=== PATIENT | male | born 1940 | race Caucasian/White ===

== ENCOUNTER → 2016-08-20 | Outpatient (CLI) | payer MEDICARE, OTHER ==
[2016-08-20 08:29] LABS: ALANINE AMINOTRANSFERASE 32 U/L (21-72); ALBUMIN 3.9 g/dL (3.5-5.0); ALKALINE PHOSPHATASE 38 U/L (38-126); ANION GAP 11 (5-19); ASPARTATE AMINO TRANSFERASE 23 U/L (17-59); BILIRUBIN,TOTAL 0.7 mg/dL (0.2-1.3); BLOOD UREA NITROGEN 25 mg/dL (7-20); CALCIUM 9.7 mg/dL (8.4-10.2); CARBON DIOXIDE 26 mmol/L (22-30); CHLORIDE 106 mmol/L (98-107); CHOLESTEROL 133.87 mg/dL (0-200); CREATININE RESULT 1.23 mg/dL (0.52-1.25); Direct HDL 32 mg/dL (>40); GLUCOSE 96 mg/dL (75-110); POTASSIUM 4.2 mmol/L (3.6-5.0); SODIUM 143.2 mmol/L (137-145); TRIGLYCERIDES 183 mg/dL (<150)
[2016-08-20 08:40] LABS: DIRECT LDL 65 mg/dL (<100)
[2016-08-20 08:55] LABS: VLDL CHOLESTEROL 36.6 mg/dL (10-31)
== END ==
LOC: OD 07:04
PROVIDERS: ATTEND Internal Medicine
DX: Z01.810 Encounter for preprocedural cardiovascular examination (principal); I25.10 Atherosclerotic heart disease of native coronary artery without angina pectoris; Z95.1 Presence of aortocoronary bypass graft; I71.4 Abdominal aortic aneurysm, without rupture; I25.2 Old myocardial infarction; E78.4 Other hyperlipidemia; I10 Essential (primary) hypertension; Z79.899 Other long term (current) drug therapy
CPT/HCPCS: 36415; 80053; 80061

== ENCOUNTER → 2016-09-08 | Outpatient (CLI) | payer MEDICARE, OTHER | LOC: RAD 13:46 | PROVIDERS: ATTEND Specialist | DX: I71.4 Abdominal aortic aneurysm, without rupture (principal) | CPT/HCPCS: 74175 ==

== ENCOUNTER 2016-12-13 15:01 | Emergency (ER) | payer MEDICARE, OTHER ==
--- NOTE | 2016-12-13 17:10 | ER Document Report ---
ED Medical Screen (RME) - General Chief Complaint: Back Pain Stated Complaint: KNEE AND BACK PAIN Time Seen by Provider: 12/13/16 16:56 Mode of Arrival: Ambulatory Information source: Patient Notes: 76-year-old male presents to ED for chronic pain in his lower back pain goes through to his abdomen that he states is chronic with no new injury. He states it does not hurt to touch his back or his abdomen but when he tries to get up and down the pain is severe. 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 He states he is also having pain to his left knee that is also chronic. 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 I have greeted and performed a rapid initial assessment of this patient. A comprehensive ED assessment and evaluation of the patient, analysis of test results and completion of medical decision making process will be conducted by an additional ED providers. TRAVEL OUTSIDE OF THE [place] IN LAST 30 DAYS: No - Related Data Allergies/Adverse Reactions: tetracycline [Tetracycline] Adverse Reaction (Intermediate, Verified 12/13/16 15 :19) sick, hallucinations Past Medical History - Past Medical History Cardiac Medical History: Reports: Hx Congestive Heart Failure, Hx Coronary Artery Disease, Hx Heart Attack - [place] 1985, Hx Hypercholesterolemia, Hx Hypertension - DX [place] 1985. on meds Pulmonary Medical History: Reports: Hx Bronchitis - HAD 20 YEARS AGO Denies: Hx Asthma, Hx COPD, Hx Pneumonia Neurological Medical History: Denies: Hx Cerebrovascular Accident, Hx Seizures Renal/ Medical History: Reports: Hx Kidney Stones. Denies: Hx Peritoneal Dialysis GI Medical History: Reports: Hx Gastroesophageal Reflux Disease - DX [place] 2008, Hx Hiatal Hernia - [place] 2008. Denies: Hx Hepatitis, Hx Ulcer Musculoskeltal Medical History: Reports Hx Arthritis - DJD Infectious Medical History: Denies: Hx Hepatitis Past Surgical History: Reports: Hx Cardiac Catheterization - [place] 1985, Hx Cardiac Surgery, Hx Open Heart Surgery, Hx Oral Surgery - TEETH. Denies: Hx Adenoidectomy, Hx Pacemaker - Immunizations Hx Diphtheria, Pertussis, Tetanus Vaccination: Yes Physical Exam - Vital signs Vitals: Temp Pulse Resp BP Pulse Ox 97.5 F 86 20 124/71 93 12/13/16 15:17 12/13/16 15:17 12/13/16 15:17 12/13/16 15:17 12/13/16 15:17 Course - Vital Signs Vital signs: Temp Pulse Resp BP Pulse Ox 97.5 F 86 20 124/71 93 12/13/16 15:17 12/13/16 15:17 12/13/16 15:17 12/13/16 15:17 12/13/16 15:17
[2016-12-13 18:07] LABS: ABSOLUTE BASOPHILS # (AUTO) 0.1 10^3/uL (0.0-0.2); ABSOLUTE EOSINOPHILS # (AUTO) 0.2 10^3/uL (0.0-0.6); ABSOLUTE MONOCYTES (AUTO) 1.3 10^3/uL (0.1-1.4); ABSOLUTE NEUT (AUTO) 8.7 10^3/uL (1.7-8.2); BASOPHILS % (AUTO) 0.5 % (0-2); EOSINOPHILS % (AUTO) 1.5 % (0-6); HEMATOCRIT 39.4 % (37.9-51.0); HEMOGLOBIN 12.8 g/dL (13.5-17.0); LYMPHOCYTES % (AUTO) 16.2 % (13-45); MEAN CORPUSCULAR HEMOGLOBIN 29.9 pg (27.0-33.4); MEAN CORPUSCULAR HGB CONC 32.5 g/dL (32.0-36.0); MEAN CORPUSCULAR VOLUME 92 fl (80-97); MONOCYTES % (AUTO) 10.7 % (3-13); RED BLOOD COUNT 4.29 10^6/uL (4.35-5.55); RED CELL DISTRIBUTION WIDTH 13.4 % (11.5-14.0); SEGMENTED NEUTROPHILS % (AUTO) 71.1 % (42-78); WHITE BLOOD COUNT 12.3 10^3/uL (4.0-10.5)
[2016-12-13 18:18] LABS: APPEARANCE,URINE SLIGHTLY-CLOUDY; BILIRUBIN,URINE NEGATIVE (NEGATIVE); GLUCOSE, URINE NEGATIVE (NEGATIVE); KETONES,URINE NEGATIVE (NEGATIVE); LEUKOCYTE ESTERASE,URINE NEGATIVE (NEGATIVE); NITRITE,URINE NEGATIVE (NEGATIVE); PROTEIN,URINE NEGATIVE (NEGATIVE); URINE SPECIFIC GRAVITY 1.025; UROBILINOGEN,URINE NEGATIVE mg/dL (<2.0)
[2016-12-13 18:24] LABS: ALANINE AMINOTRANSFERASE 32 U/L (21-72); ALBUMIN 4.4 g/dL (3.5-5.0); ALKALINE PHOSPHATASE 50 U/L (38-126); ANION GAP 14 (5-19); ASPARTATE AMINO TRANSFERASE 27 U/L (17-59); BILIRUBIN,DIRECT 0.5 mg/dL (0.0-0.4); BILIRUBIN,TOTAL 0.8 mg/dL (0.2-1.3); BLOOD UREA NITROGEN 27 mg/dL (7-20); CARBON DIOXIDE 27 mmol/L (22-30); CHLORIDE 101 mmol/L (98-107); CREATININE RESULT 1.34 mg/dL (0.52-1.25); GLUCOSE 94 mg/dL (75-110); POTASSIUM 4.5 mmol/L (3.6-5.0); TOTAL PROTEIN 8.2 g/dL (6.3-8.2)
[2016-12-13] MEDS ORDERED: LIDOCAINE 5% (700 MG) TRANSDERMAL ADH..PATCH TP ONE (19:25)
[2016-12-13] MEDS ORDERED: MORPHINE SULFATE IR 15 MG TABLET PO ONE (19:25)
[2016-12-13] MEDS ORDERED: NAPROXEN 250 MG TABLET PO ONE (19:25)
--- NOTE | 2016-12-13 19:25 | ER Document Report ---
ED General - General Chief Complaint: Back Pain Stated Complaint: KNEE AND BACK PAIN Time Seen by Provider: 12/13/16 16:56 Mode of Arrival: Ambulatory Notes: Patient is a 76-year-old male who presents with acute worsening of his chronic low back pain. States that today when he got out of bed he felt an acute stabbing pain to his left. Lumbar spine. Patient states that he daily has pain to this area but that was much more intense today. Pain is worsened by range of motion or trying to walk. He has tried Tylenol without improvement of the pain. Denies any weakness, numbness, difficulty with ambulation, bowel or bladder incontinence, or urinary retention. Denies any history of similar pain in the past. He denies any abdominal pain, pain rating from the back to the abdomen, nausea, vomiting, fever, or chest pain. He is scheduled to see his orthopedic doctor in 3 days and states the pain was to a point where he felt he needed to be evaluated today. Denies any recent injury although does note that he picked his up off the floor 2 days ago. TRAVEL OUTSIDE OF THE [place] IN LAST 30 DAYS: No - Related Data Allergies/Adverse Reactions: tetracycline [Tetracycline] Adverse Reaction (Intermediate, Verified 12/13/16 15 :19) sick, hallucinations Past Medical History - General Information source: Patient - Social History Smoking Status: Never Smoker Frequency of alcohol use: None Drug Abuse: None Lives with: Spouse/Significant other Family History: Reviewed & Not Pertinent Patient has suicidal ideation: No Patient has homicidal ideation: No - Past Medical History Cardiac Medical History: Reports: Hx Congestive Heart Failure, Hx Coronary Artery Disease, Hx Heart Attack - [place] 1985, Hx Hypercholesterolemia, Hx Hypertension - DX [place] 1985. on meds Pulmonary Medical History: Reports: Hx Bronchitis - HAD 20 YEARS AGO Denies: Hx Asthma, Hx COPD, Hx Pneumonia Neurological Medical History: Denies: Hx Cerebrovascular Accident, Hx Seizures Renal/ Medical History: Reports: Hx Kidney Stones. Denies: Hx Peritoneal Dialysis GI Medical History: Reports: Hx Gastroesophageal Reflux Disease - DX [place] 2008, Hx Hiatal Hernia - [place] 2008. Denies: Hx Hepatitis, Hx Ulcer Musculoskeltal Medical History: Reports Hx Arthritis - DJD Infectious Medical History: Denies: Hx Hepatitis Past Surgical History: Reports: Hx Cardiac Catheterization - [place] 1985, Hx Cardiac Surgery, Hx Open Heart Surgery, Hx Oral Surgery - TEETH. Denies: Hx Adenoidectomy, Hx Pacemaker - Immunizations Hx Diphtheria, Pertussis, Tetanus Vaccination: Yes Hx Pneumococcal Vaccination: 03/20/07 Review of Systems - Review of Systems Notes: Constitutional: Negative for fever. HENT: Negative for sore throat. Eyes: Negative for visual changes. Cardiovascular: Negative for chest pain. Respiratory: Negative for shortness of breath. Gastrointestinal: Negative for abdominal pain, vomiting or diarrhea. Genitourinary: Negative for dysuria. Musculoskeletal: Positive for back pain. Skin: Negative for rash. Neurological: Negative for headaches, weakness or numbness. 10 point ROS negative except as marked above and in HPI. Physical Exam - Vital signs Vitals: Temp Pulse Resp BP Pulse Ox 97.5 F 86 20 124/71 93 12/13/16 15:17 12/13/16 15:17 12/13/16 15:17 12/13/16 15:17 12/13/16 15:17 Interpretation: Normal Notes: PHYSICAL EXAMINATION: GENERAL: Well-appearing, well-nourished and in no acute distress. HEAD: Atraumatic, normocephalic. EYES: Pupils equal round and reactive to light, extraocular movements intact, sclera anicteric, conjunctiva are normal. ENT: nares patent, oropharynx clear without exudates. Moist mucous membranes. NECK: Normal range of motion, supple without lymphadenopathy LUNGS: Breath sounds clear to auscultation bilaterally and equal. No wheezes rales or rhonchi. HEART: Regular rate and rhythm without murmurs ABDOMEN: Soft, nontender, normoactive bowel sounds. No guarding, no rebound. No masses appreciated. EXTREMITIES: Normal range of motion, no pitting or edema. No cyanosis. Back: No midline spinal tenderness, step-offs or deformities. There is pain on palpation of the carmelo-lumbar spine on the left NEUROLOGICAL: 5 out of 5 strength both distally and proximally bilateral lower extremities. 2+ patellar reflexes bilaterally. No clonus. Sensation grossly intact in the bilateral lower extremities. Patient is able to ambulate without difficulty. PSYCH: Normal mood, normal affect. SKIN: Warm, Dry, normal turgor, no rashes or lesions noted. Course - Re-evaluation Re-evalutation: 12/13/16 19:22 Presentation of a well appearing patient complaining of acute on chronic back pain. No rapid progression of symptoms, systemic symptoms including fevers, chills, weight loss, history of recent bacterial infection, bilateral symptoms, numbness, weakness, difficulty walking, urinary retention or bowel incontinence , personal history of cancer, immunosuppression, diabetes, or history of IV drug use. Exam is without point tenderness over vertebral bodies, pulsatile abdominal mass, and patient has symmetric and intact lower extremity strength, sensation, and reflexes without clonus. 2+ symmetric medial malleolar and dorsalis pedis pulses. Patient does have a history of an abdominal aneurysm although he denies any abdominal pain whatsoever, his pain is reproducible on palpation of the low back, and his clinical history is not consistent with a ruptured AAA. States his pain is actually improved at the time of my assessment. Pain is worsened by range of motion and going from a sitting to standing position with the highly atypical for an aortic presentation. I do not believe patient requires a CT scan of the abdomen pelvis at this time. Based on history and physical, I have a very low suspicion of a concerning etiology of pain including epidural compression syndrome, spinal infection, transverse myelitis, malignancy, abdominal aortic aneurysm, renal colic, acute lower extremity claudication, neurogenic claudication, ankylosing spondylitis, or other intra-abdominal process. Due to absence of concerning risk factors in history and physical as well as absence of rapidly progressive, severe, or bilateral symptoms, will defer imaging at this point. Plan to manage conservatively with outpatient analgesia, analgesia, and physical therapy. - Acetaminophen 650 q 4 + ibuprofen 600 q 6 - Continue normal daily activities as tolerated by pain - Provide with standard musculoskeletal back pain exercise instructions - Instruct to follow up with primary care provider if symptoms not improving - Provide careful return precautions and concerning symptoms to watch for. - Vital Signs Vital signs: Temp Pulse Resp BP Pulse Ox 97.8 F 82 18 113/89 H 97 12/13/16 20:13 12/13/16 20:13 12/13/16 20:13 12/13/16 20:13 12/13/16 20:13 - Laboratory Result Diagrams: 12/13/16 17:50 12/13/16 17:50 Laboratory results interpreted by me: 12/13/16 12/13/16 12/13/16 17:50 17:50 17:50 WBC 12.3 H RBC 4.29 L Hgb 12.8 L Absolute Neutrophils 8.7 H BUN 27 H Creatinine 1.34 H Est GFR (Non-Af Amer) 52 L Direct Bilirubin 0.5 H Urine Ascorbic Acid 40 H Discharge - Discharge Clinical Impression: Low back pain Qualifiers: Chronicity: acute Back pain laterality: left Sciatica presence: without sciatica Qualified Code(s): M54.5 - Low back pain Condition: Good Disposition: HOME, SELF-CARE Additional Instructions: You have been seen in the Emergency Department (ED) today for back pain. Your workup and exam have not shown any acute abnormalities and you are likely suffering from muscle strain or possible problems with your discs, but there is no treatment that will fix your symptoms at this time. Please take the naproxen that has been prescribed as directed. In addition to naproxen take Tylenol 1000 mg every 6 hours. For pain not controlled by the naproxen and Tylenol you may use the oral morphine tablets as needed. You should also purchase a local lidocaine cream such as "aspercreme with lidocaine" and use per bottle instructions to the affected area. Apply heat to the area as often as you are able. Continue to keep active and avoid prolonged periods of bed rest. Please follow up with your doctor as soon as possible regarding today's ED visit and your back pain. Return to the ED for worsening back pain, fever, weakness or numbness of either leg, or if you develop either (1) an inability to urinate or have bowel movements, or (2) loss of your ability to control your bathroom functions (if you start having "accidents"), or if you develop other new symptoms that concern you.concern you. Prescriptions: Morphine Sulfate [Morphine Ir 15 mg Tablet] 15 mg PO Q4HP PRN #12 tablet PRN Reason: Naproxen 500 mg PO BID #60 tablet Referrals: HILARIA DE GUZMAN MD [Primary Care Provider] - Follow up in 3-5 days
[2016-12-13 20:24] VITALS: BP 113/89
== END 2016-12-13 20:24 | disposition home or self-care (01) ==
LOC: ER 15:01
DX: M54.5 Low back pain (principal); G89.29 Other chronic pain; I25.10 Atherosclerotic heart disease of native coronary artery without angina pectoris; I25.2 Old myocardial infarction; I10 Essential (primary) hypertension
CPT/HCPCS: 99283; 36415; 85025; 80053; 81001; A9270 ×2

== ENCOUNTER 2017-02-13 11:56 | Emergency (ER) | payer MEDICARE, OTHER ==
[2017-02-13 12:04] VITALS: BP 139/68
[2017-02-13] MEDS ORDERED: TRAMADOL HCL 50 MG TABLET PO ONE (12:21)
[2017-02-13] MEDS ORDERED: KETOROLAC TROMETHAMINE 60 MG/2 ML SDV IM ONE (12:21)
--- NOTE | 2017-02-13 12:29 | ER Document Report ---
ED Extremity Problem, Lower - General Chief Complaint: Knee Pain Stated Complaint: RIGHT KNEE PAIN Time Seen by Provider: 02/13/17 12:09 Mode of Arrival: Ambulatory Information source: Patient TRAVEL OUTSIDE OF THE [place] IN LAST 30 DAYS: No - HPI Patient complains to provider of: Pain Location: Knee Occurred: This morning Onset/Duration: Gradual Quality of pain: Dull, Fullness Severity: Moderate Pain Level: 2 Recent injury: No Associated symptoms: denies: Chest pain, Chills, Dizzy, Fainting, Fever, [place] a crack, [place] a pop, Hurts to breath, Painful ambulation, Rapid heart rate, Seizure, Short of breath, Sweaty, Unable to bear weight, Weak Exacerbated by: Movement Relieved by: Nothing Notes: Patient arrives with complaints of right knee pain. The patient states that he saw or so approximately a month ago for right knee pain and was diagnosed with arthritis. He had a steroid injection done and is been doing well since that time. He woke up this morning with generalized knee pain and mild swelling. He denies any specific injury. He does care for his at home which requires lots of physical activity. He denies any redness or fever. He denies any new numbness tingling or weakness. No abdominal pain. No nausea, vomiting , diarrhea. He denies any chest pain or shortness of breath. No calf pain or calf swelling. Pain is worse with movement of the knee. He is able to bear weight but with pain. Other complaints. - Related Data Allergies/Adverse Reactions: tetracycline [Tetracycline] Adverse Reaction (Intermediate, Verified 02/13/17 12 :00) sick, hallucinations Past Medical History - Social History Smoking Status: Never Smoker Frequency of alcohol use: None Drug Abuse: None Family History: Reviewed & Not Pertinent Patient has suicidal ideation: No Patient has homicidal ideation: No - Past Medical History Cardiac Medical History: Reports: Hx Congestive Heart Failure, Hx Coronary Artery Disease, Hx Heart Attack - [place] 1985, Hx Hypercholesterolemia, Hx Hypertension - DX [place] 1985. on meds Pulmonary Medical History: Reports: Hx Bronchitis - HAD 20 YEARS AGO Denies: Hx Asthma, Hx COPD, Hx Pneumonia Neurological Medical History: Denies: Hx Cerebrovascular Accident, Hx Seizures Renal/ Medical History: Reports: Hx Kidney Stones. Denies: Hx Peritoneal Dialysis GI Medical History: Reports: Hx Gastroesophageal Reflux Disease - DX [place] 2008, Hx Hiatal Hernia - [place] 2008. Denies: Hx Hepatitis, Hx Ulcer Musculoskeltal Medical History: Reports Hx Arthritis - DJD Infectious Medical History: Denies: Hx Hepatitis Past Surgical History: Reports: Hx Cardiac Catheterization - [place] 1985, Hx Cardiac Surgery, Hx Open Heart Surgery, Hx Oral Surgery - TEETH. Denies: Hx Adenoidectomy, Hx Pacemaker - Immunizations Hx Diphtheria, Pertussis, Tetanus Vaccination: Yes Hx Pneumococcal Vaccination: 03/20/07 Review of Systems - Review of Systems -: Yes All other systems reviewed and negative Physical Exam - Vital signs Vitals: Temp Pulse Resp BP Pulse Ox 97.6 F 86 20 139/68 H 97 02/13/17 12:01 02/13/17 12:01 02/13/17 12:02/13/17 12:02/13/17 12:01 - Notes Notes: GENERAL: alert, cooperative, nontoxic, no distress. HEAD: normocephalic, atraumatic EYES: conjunctiva pink without discharge, no external redness or swelling. EARS: no external swelling, no external redness NOSE: atraumatic, no external swelling MOUTH/THROAT: mucous membranes moist and pink NECK: soft, supple, full range of motion, no meningismus. CHEST: no distress, lungs clear and equal throughout. No wheezing, rales, rhonchi. CARDIAC: regular rate and rhythm, no murmur, normal capillary refill, normal pulses. BACK: full range of motion, no CVA tenderness. EXTREMITIES: full range of motion of all extremities. Mild generalized tenderness to the right knee. No obvious ligament instability. Mild effusion noted, no redness, the joint is not hot to the touch. There is no rash. There is no calf swelling or tenderness. Normal pulse and sensation distally. Slightly limited flexion of the knee secondary to pain. Full extension noted. NEURO: alert and oriented 3, no focal deficits, full range of motion of all extremities. PYSCH: appropriate mood, affect. Patient is cooperative. SKIN: pink, warm, dry, no rash. Course - Re-evaluation Re-evalutation: 02/13/17 12:27 Patient is nontoxic appearing with stable vitals. The patient has a history of chronic pain in the right knee. The pain is worse this morning. Denies any traumatic injury recently. He is a small joint effusion noted on exam. There is no redness or increased heat to touch to the joint. There is no sign of infection. Neurovascularly intact. With lack of new traumatic injury, x-rays not indicated at this time. Patient was placed in an Corby wrap for comfort. He will be given a shot of Toradol and a dose of tramadol here in the emergency department. Discharged home with instructions to take his meloxicam he has at home with a small prescription of Ultram and instructions to follow-up with his orthopedist at the next available appointment. He should follow-up sooner if he develops increased pain, fever, redness, drainage, any further concerns. The patient is noted to have elevated blood pressure during today's emergency department visit. The patient was informed of this finding. The patient was instructed that this may be related to pre-hypertension and requires further evaluation with a primary care provider. The patient has no hypertensive symptoms at this time. - Vital Signs Vital signs: Temp Pulse Resp BP Pulse Ox 97.6 F 86 20 139/68 H 97 02/13/17 12:01 02/13/17 12:01 02/13/17 12:01 02/13/17 12:01 02/13/17 12:01 Procedures - Immobilization Right knee Pre-Proc Neuro Vasc Exam: Normal Immobilizer type: Corby wrap Performed by: RN Post-Proc Neuro Vasc Exam: Normal Alignment checked and good: Yes Discharge - Discharge Clinical Impression: Effusion, right knee Condition: Stable Disposition: HOME, SELF-CARE Instructions: Oral Narcotic Medication ([facility]), Sprained Knee ([facility]), Ice & Elevation ([facility]) Additional Instructions: Take medications as prescribed. Take your meloxicam as well as acetaminophen as needed for pain. Wear Corby wrap as needed for comfort. Ice and elevate the knee. Follow-up with your orthopedist at the next available appointment for recheck. Follow-up sooner for increased pain, fever, redness, any further concerns. Prescriptions: Tramadol HCl [Ultram] 50 mg PO TID PRN #10 tablet PRN Reason: Forms: Elevated Blood Pressure
== END 2017-02-13 12:36 | disposition home or self-care (01) ==
LOC: ER 11:56
DX: M25.461 Effusion, right knee (principal); G89.29 Other chronic pain; M25.561 Pain in right knee; I11.0 Hypertensive heart disease with heart failure; I50.9 Heart failure, unspecified; I25.10 Atherosclerotic heart disease of native coronary artery without angina pectoris; E78.00 Pure hypercholesterolemia, unspecified; I25.2 Old myocardial infarction; Z87.442 Personal history of urinary calculi
CPT/HCPCS: 99283; 96372; J1885; A9270

== ENCOUNTER 2017-07-03 09:37 | Emergency (ER) | payer MEDICARE, OTHER ==
--- NOTE | 2017-07-03 11:42 | RADIOLOGY REPORT (SQ) ---
EXAM DESCRIPTION: KNEE RIGHT 4 VIEWS COMPLETED DATE/TIME: 07/03/2017 11:16 am REASON FOR STUDY: pain in right knee and leg COMPARISON: None. NUMBER OF VIEWS: Four views. TECHNIQUE: AP, lateral, and both oblique radiographic images acquired of the right knee. LIMITATIONS: None. FINDINGS: MINERALIZATION: Normal. BONES: No acute fracture or dislocation. Mild degenerative changes at the patellofemoral compartment . JOINT: There is a small joint effusion. There is chondrocalcinosis. SOFT TISSUES: No soft tissue swelling. No radio-opaque foreign body. Vascular calcifications are no mick. IMPRESSION: No radiographic evidence of acute fracture. Small joint effusion. Chondrocalcinosis. Mild degenerative changes. TECHNICAL DOCUMENTATION: JOB ID: [id number] [email or web address]- All Rights Reserved
--- NOTE | 2017-07-03 12:08 | ER Document Report ---
ED Extremity Problem, Lower - General Chief Complaint: Leg Pain Stated Complaint: RIGHT KNEE AND LEG PAIN Time Seen by Provider: 07/03/17 10:33 Mode of Arrival: Ambulatory Information source: Patient Notes: 76-year-old male presents to ED for complaint of right knee leg and thigh pain. He states the pain is worse behind his right knee. He states any time he flexes his foot or extend his knee the pain is much worse. States he had this pain about 2 months ago and had a Doppler done and it was negative at that time. He states he got a cortisone shot in his knee previously for knee arthritis but this does not feel the same as that pain. He states cold packs is not helped at all but hot packs have helped off and on. He states his pain has been for several days now. TRAVEL OUTSIDE OF THE [place] IN LAST 30 DAYS: No - HPI Patient complains to provider of: Pain. No: Injury Location: Knee, Leg, Thigh Occurred: Other - Few days Onset/Duration: Gradual Quality of pain: Burning, Pressure Severity: Moderate Pain Level: 3 Recent injury: No Associated symptoms: Painful ambulation Exacerbated by: Movement, Walking Relieved by: Rest - Related Data Allergies/Adverse Reactions: tetracycline [Tetracycline] Adverse Reaction (Intermediate, Verified 07/03/17 09 :41) sick, hallucinations Past Medical History - General Information source: Patient - Social History Smoking Status: Never Smoker Cigarette use (# per day): No Chew tobacco use (# tins/day): No Smoking Education Provided: No Frequency of alcohol use: Social Drug Abuse: None Occupation: none Lives with: Family Family History: Arthritis, CAD, DM, Hyperlipidemia, Hypertension, Malignancy. denies: COPD, CVA, Thyroid Disfunction Patient has suicidal ideation: No Patient has homicidal ideation: No - Past Medical History Cardiac Medical History: Reports: Hx Congestive Heart Failure, Hx Coronary Artery Disease, Hx Heart Attack - [place] 1985, Hx Hypercholesterolemia, Hx Hypertension - DX [place] 1985. on meds Pulmonary Medical History: Reports: Hx Bronchitis - HAD 20 YEARS AGO EENT Medical History: Reports: None Neurological Medical History: Reports: None Endocrine Medical History: Reports: Hx Hypothyroidism Renal/ Medical History: Reports: Hx Benign Prostatic Hyperplasia, Hx Kidney Stones Malignancy Medical History: Reports None GI Medical History: Reports: Hx Gastroesophageal Reflux Disease - DX [place] 2008, Hx Hiatal Hernia - [place] 2009, Hx Colonoscopy, Hx Endoscopy Musculoskeltal Medical History: Reports Hx Arthritis - DJD, Reports Hx Musculoskeletal Deformity, Reports Hx Musculoskeletal Trauma Skin Medical History: Reports None Psychiatric Medical History: Reports: None Traumatic Medical History: Reports: Hx Fractures - 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 Infectious Medical History: Reports: None Past Surgical History: Reports: Hx Cardiac Catheterization - [place] 1985, Hx Cardiac Surgery, Hx Open Heart Surgery, Hx Oral Surgery - TEETH, Hx Orthopedic Surgery - Repair when accidentally amputated right index finger - Immunizations Hx Diphtheria, Pertussis, Tetanus Vaccination: Yes Hx Pneumococcal Vaccination: 03/20/07 Review of Systems - Review of Systems Constitutional: No symptoms reported EENT: No symptoms reported Cardiovascular: No symptoms reported Respiratory: No symptoms reported Gastrointestinal: No symptoms reported Genitourinary: No symptoms reported Male Genitourinary: No symptoms reported Musculoskeletal: Other - Right leg pain thigh knee and lower leg and moves knee Skin: No symptoms reported Hematologic/Lymphatic: No symptoms reported Neurological/Psychological: No symptoms reported -: Yes All other systems reviewed and negative Physical Exam - Vital signs Vitals: Temp Pulse Resp BP Pulse Ox 97.2 F 76 16 126/64 H 97 07/03/17 09:41 07/03/17 09:41 07/03/17 09:41 07/03/17 09:41 07/03/17 09:41 Interpretation: Normal - General General appearance: Appears well, Alert - HEENT Head: Normocephalic, Atraumatic Eyes: Normal Pupils: PERRL - Respiratory Respiratory status: No respiratory distress Chest status: Nontender Breath sounds: Normal Chest palpation: Normal - Cardiovascular Rhythm: Regular Heart sounds: Normal auscultation Murmur: No - Abdominal Inspection: Normal Distension: No distension Bowel sounds: Normal Tenderness: Nontender Organomegaly: No organomegaly - Back Back: Normal, Nontender - Extremities General upper extremity: Normal inspection, Nontender, Normal color, Normal ROM , Normal temperature General lower extremity: Normal inspection, Normal color, Normal temperature, Normal weight bearing. No: Sherrie's sign Thigh: Tender. No: Abrasion, Deformity, Dislocation, Ecchymosis, Instability, Laceration Knee: Tender, Pain with ROM, Patellar tendon intact, Popliteal fossa tender. No : Abrasion, Deformity, Dislocation, Drawer's test instability, Ecchymosis, Instability, Joint effusion, Laceration, Laxity with varus stress, Tender joint line, Unable to bear weight Calf: Tender - Neurological Neuro grossly intact: Yes Cognition: Normal Orientation: AAOx4 Harold Coma Scale Eye Opening: Spontaneous Shen Coma Scale Verbal: Oriented Harold Coma Scale Motor: Obeys Commands Harold Coma Scale Total: 15 Speech: Normal Motor strength normal: LUE, RUE, LLE, RLE Sensory: Normal - Psychological Associated symptoms: Normal affect, Normal mood - Skin Skin Temperature: Warm Skin Moisture: Dry Skin Color: Normal Course - Re-evaluation Re-evalutation: 07/03/17 12:07 X-ray of right knee and Doppler ordered of the right leg ordered to rule out clots or any injuries to the knee. - Vital Signs Vital signs: Temp Pulse Resp BP Pulse Ox 98.2 F 16 L 16 122/72 100 07/03/17 14:18 07/03/17 14:18 07/03/17 14:18 07/03/17 14:18 07/03/17 14:18 - Diagnostic Test Radiology reviewed: Image reviewed, Reports reviewed Discharge - Discharge Clinical Impression: Right leg pain Degenerative joint disease Qualifiers: Osteoarthritis location: knee Osteoarthritis type: unspecified Laterality: right Qualified Code(s): M17.11 - Unilateral primary osteoarthritis, right knee Condition: Stable Disposition: HOME, SELF-CARE Additional Instructions: He presented to ED today for right knee and leg pain. There is no difference in the size of your right and left leg. The x-ray to your right knee showed degenerative joint disease. The venous Doppler was negative for any blood clots. You have good peripheral pulses to the right and left extremity. A written report of your x-ray was given to you as well as a CD of the x-ray. You can get a copy of the Doppler report from medical records. Follow-up with your orthopedic doctor from [facility] Acetaminophen Acetaminophen may be taken for pain relief or fever control. It's much safer than aspirin, offering a wider range of "safe" dosages. It is safe during . Some brand names are Tylenol, Panadol, Datril, Anacin 3, Tempra, and Liquiprin. Acetaminophen can be repeated every four hours. The following are maximum recommended dosages: WEIGHT Dose Drops Elixir Chewable( 80mg) (LBS.) drprs=droppers tsp=teaspoon 6 40 mg .4 ml (1/2) 6-11 80 mg .8 ml (full) 1/2 tsp 1 tab 12-16 120 mg 1 1/2 drprs 3/4 tsp 1 1/2 tabs 17-23 160 mg 2 drprs 1 tsp 2 tabs 24-30 240 mg 3 drprs 1 1/2 tsp 3 tabs 30-35 320 mg 2 tsp 4 tabs 36-41 360 mg 2 1/4 tsp 4 1 /2 tabs 42-47 400 mg 2 1/2 tsp 5 tabs 48-53 480 mg 3 tsp 6 tabs 54-59 520 mg 3 1/4 tsp 6 1 /2 tabs 60-64 560 mg 3 1/2 tsp 7 tabs 65-70 600 mg 3 3/4 tsp 7 1 /2 tabs 71-76 640 mg 4 tsp 8 tabs 77-82 720 mg 4 1/2 tsp 9 tabs 83-88 800 mg 5 tsp 10 tabs >89 pounds or adults 650 mg to 900 mg Acetaminophen can be repeated every four hours. Maximum daily dose not to exceed 4000 mg. These maximum recommended dosages are slightly higher than the dosages written on the product container, but these dosages are very safe and well below the toxic dosage for acetaminophen. FOLLOW-UP CARE: If you have been referred to a physician for follow-up care, call the physician s office for an appointment as you were instructed or within the next two days. If you experience worsening or a significant change in your symptoms, notify the physician immediately or return to the Emergency Department at any time for re-evaluation. Referrals: HILARIA DE GUZMAN MD [Primary Care Provider] - Follow up as needed
[2017-07-03] MEDS ORDERED: ACETAMINOPHEN 325 MG TABLET PO ONE (13:51)
[2017-07-03 14:19] VITALS: BP 122/72
--- NOTE | 2017-07-03 16:25 | XCELERA REPORT ---
[address] [address] Lower Extremity Venous Evaluation Name: ANNELIESE GUIDRY Age: 76 yrs Gender: Male : 1940 Patient Status: Emergency Patient Location: ER Study Date: 07/03/2017 01:06 PM Procedure: Color flow and duplex imaging of the veins of the right lower extremity as well as the left Common Femoral vein. Reason For Study: right pain and swelling Ordering Physician: MANDIE FLYNN Performed By: Tori Irizarry Right Sided Venous Evaluation Normal vessel filling wall to wall, compression and augmentation as well as Colour flow down to the infrageniculate veins. Left Sided Venous Evaluation The left common femoral vein is fully compressible. Spontaneous and phasic flow is present in the left common femoral vein. Interpretation Summary No duplex evidence of DVT or obstruction in the right lower extremity nor in the left Common Femoral vein. : MANDIE FLYNN > Jaun Jacobo
== END 2017-07-03 14:19 | disposition home or self-care (01) ==
LOC: ER 09:37
DX: M79.604 Pain in right leg (principal); M17.11 Unilateral primary osteoarthritis, right knee; I50.9 Heart failure, unspecified; I25.10 Atherosclerotic heart disease of native coronary artery without angina pectoris; E78.00 Pure hypercholesterolemia, unspecified; I11.0 Hypertensive heart disease with heart failure; I25.2 Old myocardial infarction
CPT/HCPCS: 99284; 93971 ×2; 73564; A9270

== ENCOUNTER → 2017-11-16 | Outpatient (CLI) | payer MEDICARE, OTHER ==
--- NOTE | 2017-11-16 15:23 | RADIOLOGY REPORT (SQ) ---
EXAM DESCRIPTION: CT ABD/PELVIS NO ORAL OR IV COMPLETED DATE/TIME: 11/16/2017 2:06 pm REASON FOR STUDY: AAA (I71.4) I71.4 ABDOMINAL AORTIC ANEURYSM, WITHOUT RUPTURE COMPARISON: CT abdomen pelvis 09/08/2016, 06/11/2015, 02/16/2015, 12/04/2008 TECHNIQUE: CT scan of the abdomen and pelvis performed without intravenous or oral contrast. Images reviewed with lung, soft tissue, and bone windows. Reconstructed coronal and sagittal MPR images revi ewed. All images stored on PACS. All CT scanners at this facility use dose modulation, iterative reconstruction, and/or weight based d osing when appropriate to reduce radiation dose to as low as reasonably achievable (ALARA). [facility]: Dose Right [facility]: CareDose [facility]: Dose Right [facility]: Teradose 4D [facility]: Smart [employer] RADIATION DOSE: CT Rad equipment meets quality standard of care and radiation dose reduction techniq ues were employed. CTDIvol: 23.2 mGy. DLP: 1274 mGy-cm.mGy. LIMITATIONS: None. FINDINGS: LOWER CHEST: No significant findings. No nodules or infiltrates. NON-CONTRASTED LIVER, SPLEEN, ADRENALS: Evaluation limited by lack of IV contrast. No identified sign ificant masses. PANCREAS: No masses. No peripancreatic inflammatory changes. GALLBLADDER: No identified stones by CT criteria. No inflammatory changes to suggest cholecystitis. RIGHT KIDNEY AND URETER: No suspicious masses. Assessment limited by lack of IV contrast. No signif icant calcifications. No hydronephrosis or hydroureter. LEFT KIDNEY AND URETER: No suspicious masses. Assessment limited by lack of IV contrast. No signifi cant calcifications. No hydronephrosis or hydroureter. AORTA AND RETROPERITONEUM: Infrarenal abdominal aorta measures 3.5 cm in greatest diameter, stable co mpared to previous studies. Heavily calcified superior mesenteric artery origin and renal artery tom gins with at least 50% stenosis. Heavily calcified bilateral proximal common iliac arteries with a l east 50% diameter stenosis. BOWEL AND PERITONEAL CAVITY: Stable 2 cm calcified mesenteric mass compared to studies dating back to 2014. Mesenteric nodule was noncalcified in 2008. No CT evidence of bowel obstruction or free intr aperitoneal air or fluid. There are descending and sigmoid colon diverticuli without CT signs of acu te diverticulitis. APPENDIX: Not well seen PELVIS, BLADDER, AND ABDOMINAL WALL:No abnormal masses. No free fluid. Bladder normal. BONES: Degenerative changes lumbar spine OTHER: No other significant finding. IMPRESSION: Stable unruptured 3.5 cm diameter infrarenal abdominal aortic aneurysm COMMENT: Quality ID # [id number]: Final reports with documentation of one or more dose reduction techniques (e.g., Automated exposure control, adjustment of the mA and/or kV according to patient size, use of iterative reconstruction technique) TECHNICAL DOCUMENTATION: JOB ID: [id number] [employer]- All Rights Reserved Reading location - IP/workstation name: [email or web address]
== END ==
LOC: RAD 13:49
PROVIDERS: ATTEND Family Medicine
DX: I71.4 Abdominal aortic aneurysm, without rupture (principal)
CPT/HCPCS: 74176

== ENCOUNTER → 2018-01-11 | Outpatient (CLI) | payer MEDICARE, OTHER ==
--- NOTE | 2018-01-12 08:33 | XCELERA REPORT ---
[address] [address] Lower Extremity Arterial Evaluation Name: ANNELIESE GUIDRY Age: 77 yrs Gender: Male : 1940 Patient Status: Preadmit Patient Location: Study Date: 01/11/2018 01:16 PM Procedure: A color flow and duplex scan of the lower extremity arteries was performed bilaterally with velocity and waveform anaylsis. 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 Biphasic with only slightly diminished velocities to the infrageniculate vessels. High velocity in the Deep Femoral. 20-49 % stenosis at the Femoral artery. With additional changes, as noted. Ankle Brachial index was done last week. Left Side Arterial Evaluation Normal velocity and triphasic waveforms noted from the Common Femoral artery to the Popliteal. Biphasic with only slightly diminished velocities to the infrageniculate vessels. 20-49 % stenosis at the infrageniculate level. Ankle Brachial index was done last week. Interpretation Summary Moderate hemodynamically significant lesions in the left lower extremity only, on duplex imaging, at rest. Moderate hemodynamically significant lesions in the right lower extremity only, on duplex imaging, at rest. : HILARIA DE GUZMAN > Jaun Jacobo
== END ==
LOC: SP 15:34
PROVIDERS: ATTEND Family Medicine
DX: M79.605 Pain in left leg (principal)
CPT/HCPCS: 93925

== ENCOUNTER 2018-03-13 16:57 | Emergency (ER) | payer MEDICARE, OTHER ==
--- NOTE | 2018-03-13 17:39 | RADIOLOGY REPORT (SQ) ---
EXAM DESCRIPTION: CHEST 2 VIEWS COMPLETED DATE/TIME: 03/13/2018 5:32 pm REASON FOR STUDY: syncope COMPARISON: 02/16/2015 EXAM PARAMETERS: NUMBER OF VIEWS: two views TECHNIQUE: Digital Frontal and Lateral radiographic views of the chest acquired. RADIATION DOSE: NA LIMITATIONS: none FINDINGS: LUNGS AND PLEURA: No opacities, masses or pneumothorax. No pleural effusion. MEDIASTINUM AND HILAR STRUCTURES: No masses or contour abnormalities. HEART AND VASCULAR STRUCTURES: Heart normal size. No evidence for failure. BONES: No acute findings. HARDWARE: Sternotomy wires. Graft markers. OTHER: No other significant finding. IMPRESSION: NO ACUTE RADIOGRAPHIC FINDING IN THE CHEST. TECHNICAL DOCUMENTATION: JOB ID: [id number] [employer]- All Rights Reserved Reading location - IP/workstation name: [email or web address]
--- NOTE | 2018-03-13 18:09 | ER Document Report ---
ED Medical Screen (RME) - General Chief Complaint: Near Syncope Stated Complaint: DIZZINESS Time Seen by Provider: 03/13/18 18:06 Mode of Arrival: Ambulatory Information source: Patient Notes: Presents emergency department with complaints of dizziness fatigue and dry mouth. Reports he has had the symptoms for days but each episode is worse. Reports he will walk a short while and his legs will give out he also reports increased swelling. History of CHF. Denies chest pain. Denies shortness of breath. Reports when he walks he becomes dizzy and weak. Also complains of recent diarrhea. No obvious neuro deficits, clear voice. Reports history of PR with stents and PVD. TRAVEL OUTSIDE OF THE [place] IN LAST 30 DAYS: No - Related Data Allergies/Adverse Reactions: tetracycline [Tetracycline] Adverse Reaction (Intermediate, Verified 03/13/18 17 :09) sick, hallucinations Past Medical History - Past Medical History Cardiac Medical History: Reports: Hx Congestive Heart Failure, Hx Coronary Artery Disease, Hx Heart Attack - [place] 1985, Hx Hypercholesterolemia, Hx Hypertension - DX [place] 1985. on meds Pulmonary Medical History: Reports: Hx Bronchitis - HAD 20 YEARS AGO Denies: Hx Asthma, Hx COPD, Hx Pneumonia Neurological Medical History: Denies: Hx Seizures Endocrine Medical History: Reports: Hx Hypothyroidism Renal/ Medical History: Reports: Hx Benign Prostatic Hyperplasia, Hx Kidney Stones. Denies: Hx Peritoneal Dialysis GI Medical History: Reports: Hx Gastroesophageal Reflux Disease - DX [place] 2008, Hx Hiatal Hernia - [place] 2008, Hx Colonoscopy, Hx Endoscopy. 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
[2018-03-13 18:54] LABS: ABSOLUTE BASOPHILS # (AUTO) 0.1 10^3/uL (0.0-0.2); ABSOLUTE EOSINOPHILS # (AUTO) 0.2 10^3/uL (0.0-0.6); ABSOLUTE LYMPHOCYTES (AUTO) 2.3 10^3/uL (0.5-4.7); ABSOLUTE MONOCYTES (AUTO) 0.8 10^3/uL (0.1-1.4); ABSOLUTE NEUT (AUTO) 7.5 10^3/uL (1.7-8.2); EOSINOPHILS % (AUTO) 1.9 % (0-6); HEMATOCRIT 40.1 % (37.9-51.0); LYMPHOCYTES % (AUTO) 21.2 % (13-45); MEAN CORPUSCULAR HEMOGLOBIN 31.9 pg (27.0-33.4); MEAN CORPUSCULAR HGB CONC 34.9 g/dL (32.0-36.0); MEAN CORPUSCULAR VOLUME 92 fl (80-97); MONOCYTES % (AUTO) 7.6 % (3-13); PLATELET COUNT 348 10^3/uL (150-450); RED BLOOD COUNT 4.38 10^6/uL (4.35-5.55); RED CELL DISTRIBUTION WIDTH 13.8 % (11.5-14.0); SEGMENTED NEUTROPHILS % (AUTO) 68.3 % (42-78); TOTAL CELLS COUNTED % (AUTO) 100 %
[2018-03-13 19:02] LABS: APPEARANCE,URINE SLIGHTLY-CLOUDY; BILIRUBIN,URINE NEGATIVE (NEGATIVE); COLOR,URINE YELLOW; GLUCOSE, URINE NEGATIVE (NEGATIVE); KETONES,URINE NEGATIVE (NEGATIVE); LEUKOCYTE ESTERASE,URINE NEGATIVE (NEGATIVE); NITRITE,URINE NEGATIVE (NEGATIVE); PROTEIN,URINE NEGATIVE (NEGATIVE); URINE SPECIFIC GRAVITY 1.012
[2018-03-13 19:13] LABS: ALANINE AMINOTRANSFERASE 29 U/L (21-72); ALBUMIN 4.7 g/dL (3.5-5.0); ALKALINE PHOSPHATASE 39 U/L (38-126); ANION GAP 11 (5-19); ASPARTATE AMINO TRANSFERASE 41 U/L (17-59); BILIRUBIN,DIRECT 0.6 mg/dL (0.0-0.4); BILIRUBIN,TOTAL 0.8 mg/dL (0.2-1.3); BLOOD UREA NITROGEN 24 mg/dL (7-20); CALCIUM 10.5 mg/dL (8.4-10.2); CARBON DIOXIDE 29 mmol/L (22-30); CHLORIDE 100 mmol/L (98-107); GLUCOSE 101 mg/dL (75-110); POTASSIUM 4.4 mmol/L (3.6-5.0); SODIUM 139.7 mmol/L (137-145); TOTAL PROTEIN 8.6 g/dL (6.3-8.2)
[2018-03-13] MEDS ORDERED: RINGERS SOLUTION,LACTATED 1,000 ML IV ONE (20:04)
[2018-03-13] MEDS ORDERED: MECLIZINE HCL 25 MG TABLET PO ONE (20:05)
--- NOTE | 2018-03-13 20:27 | ER Document Report ---
ED General - General Chief Complaint: Near Syncope Stated Complaint: DIZZINESS Time Seen by Provider: 03/13/18 18:06 Mode of Arrival: Ambulatory TRAVEL OUTSIDE OF THE [place] IN LAST 30 DAYS: No - HPI Notes: Patient is a 77-year-old male with a history of congestive heart failure, peripheral vascular disease, coronary artery disease, AAA-3.5cm infrarenal, hypertension, hypothyroidism, BPH, GERD who presents to the ED complaining of intermittent dizziness/light-headedness with ambulation only over the last few days. Patient states that he has also had watery diarrhea over the last 4 days , but noticed some black in his stool today which he attributes to his fruit juice. Patient states that he believes he is not hydrating well enough. Patient states that when he would ambulate at times he would have to stop because of dizziness. He has not had any dizziness at rest. Patient states that he was able walk all around the yard without becoming dizzy/light- headedness initially yesterday. Patient states that he also had another episode today when he is walking into a store. Patient states that he currently is asymptomatic and is feeling well. Patient states that he never had any unilateral focal weakness or strokelike symptoms otherwise. Patient also states that he has not had any dyspnea on exertion or development of chest pain. Patient states that he is still eating and drinking, but has not been only ate breakfast today. Denies any headache, fever, head injury, neck pain, changes in vision/speech/mentation/hearing, URI, sore throat, chest pain, palpitations, syncope, cough, shortness of breath, wheeze, dyspnea, abdominal pain, nausea/vomiting/diarrhea, urinary retention, dysuria, hematuria, loss of control of bowel or bladder, numbness/tingling, saddle anesthesia, muscle paralysis/weakness, or rash. - Related Data Allergies/Adverse Reactions: tetracycline [Tetracycline] Adverse Reaction (Intermediate, Verified 03/13/18 17 :09) sick, hallucinations Past Medical History - General Information source: Patient - Social History Smoking Status: Never Smoker Family History: Arthritis, CAD, DM, Hyperlipidemia, Hypertension, Malignancy. denies: COPD, CVA, Thyroid Disfunction - Past Medical History Cardiac Medical History: Reports: Hx Congestive Heart Failure, Hx Coronary Artery Disease, Hx Heart Attack - [place] 1985, Hx Hypercholesterolemia, Hx Hypertension - DX [place] 1985. on meds Pulmonary Medical History: Reports: Hx Bronchitis - HAD 20 YEARS AGO Denies: Hx Asthma, Hx COPD, Hx Pneumonia Neurological Medical History: Denies: Hx Seizures Endocrine Medical History: Reports: Hx Hypothyroidism Renal/ Medical History: Reports: Hx Benign Prostatic Hyperplasia, Hx Kidney Stones. Denies: Hx Peritoneal Dialysis GI Medical History: Reports: Hx Gastroesophageal Reflux Disease - DX [place] 2008, Hx Hiatal Hernia - [place] 2008, Hx Colonoscopy, Hx Endoscopy. 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 A&Ox4. Answers questions appropriately. HEAD: Atraumatic, normocephalic. Non-tender. EYES: Pupils equal round and reactive to light, extraocular movements intact, sclera anicteric, conjunctiva are normal. No nystagmus. ENT: EAC clear b/l. TM's intact b/l without erythema, fluid, or perforation. Nares patent and without discharge. oropharynx clear without exudates. No tonsilar hypertrophy or erythema. Moist mucous membranes. No sinus tenderness. NECK: Normal range of motion, supple without lymphadenopathy. No rigidity/ meningismus. No midline tenderness. No obvious bruit. LUNGS: Breath sounds clear to auscultation bilaterally and equal. No wheezes rales or rhonchi. HEART: Regular rate and rhythm without murmurs, rubs, gallops. ABDOMEN: Soft, nontender, nondistended abdomen. No guarding, no rebound. Normal bowel sounds present. No CVA tenderness bilaterally. No obvious pulsating mass. Rectal: liquidy dark color stool. Musculoskeletal: Ext b/l: FROM to passive/active. Strength 5+/5. No deficits noted. No bony tenderness of extremities. Extremities: 1+ pitting edema b/l LE's. Peripheral pulses 2+. Capillary refill less than 2 seconds. NEUROLOGICAL: NIH 0. GCS 15. Cranial nerves grossly intact. Normal speech, normal gait. Normal sensory, motor exams. Reflexes 2+ b/l. LINDSAY's negative. Pronator drift negative. Heel/pierre, finger/nose wnl. PSYCH: Normal mood, normal affect. SKIN: Warm, Dry, normal turgor, no rashes or lesions noted. Course - Re-evaluation Re-evalutation: 03/13/18 21:09 Upon further questioning, pt remember that he has not been taking his synthroid as scheduled over the past week. Thyroid panel is showing hypothyroid with TSH of 14. Orthostatics + with >20 systolic drop from supine to standing. Pt is tolerating PO at this time and declined an IV and IV fluids. He will continue PO. 03/13/18 21:12 Patient is an afebrile, well-hydrated, 77 with dizziness and lightheadedness, suspect secondary to being hypovolemic (diarrhea) and association with his hypothyroidism with a TSH of 14. Vitals are acceptable otherwise without any significant tachycardia, tachypnea, hypoxia, or hypotension. PE is otherwise unremarkable for any focal neurological deficits. NIH 0, GCS 15, cranial nerves grossly intact. Patient is currently asymptomatic and has been throughout his stay. He has not had any shortness of breath, dyspnea, chest pain. CBC, CMP, cardiac enzymes x2/EKG, chest x-ray, BNP, guaiac unremarkable for acute pathology. See thyroid panel. No further imaging or labs warranted at this time based on H&P. I did review with Dr. Minaya who is in agreement with dispo/plan. We will continue hydration of the patient and recheck of his orthostatics until acceptable. Patient had reported not taking his Synthroid as directed, but states that he will start doing so in the morning. Low suspicion for any ACS, PE, sepsis, meningitis, respiratory compromise, acute abdomen, aortic rupture, or other systemic emergent condition at this time. Patient is aware that condition can change from initial presentation and he needs to monitor symptoms closely and seek medical attention with any acute changes. Recheck with your PCM in 2-3 days. Return to the ED with any worsening/concerning symptoms with the patient is in agreement. Discharge instructions as above pending response to p.o. fluids. 03/13/18 23:20 Pt has been pushing PO fluids w/o difficulty. He remains asymptomatic and would like to go home as he is feeling well. 2nd Orthostatics were acceptable. Pt to be discharged with plan as mentioned above. - Vital Signs Vital signs: Temp Pulse Resp BP Pulse Ox 77 137/70 H 03/13/18 23:04 03/13/18 23:04 - Laboratory Result Diagrams: 03/13/18 18:38 03/13/18 18:38 Laboratory results interpreted by me: 03/13/18 03/13/18 03/13/18 18:19 18:38 18:38 WBC 11.0 H BUN 24 H Creatinine 1.97 H Est GFR ( Amer) 40 L Est GFR (Non-Af Amer) 33 L Calcium 10.5 H Direct Bilirubin 0.6 H Total Protein 8.6 H TSH Free T3 pg/mL Urine Urobilinogen 2.0 H 03/13/18 18:38 WBC BUN Creatinine Est GFR ( Amer) Est GFR (Non-Af Amer) Calcium Direct Bilirubin Total Protein TSH 14.60 H Free T3 pg/mL 1.77 L Urine Urobilinogen Discharge - Discharge Clinical Impression: Hypovolemia, Low TSH level Condition: Stable Disposition: HOME, SELF-CARE Instructions: Dehydration ([facility]) Additional Instructions: Maintain adequate fluid and food intake Take home medications as directed --you will need your thyroid panel rechecked Exercise as tolerated Monitor blood pressure daily and keep a log Monitor symptoms for any acute changes Recheck with your PCM in 2-3 days Consider a follow-up with cardiology Return to the ED with any worsening symptoms and/or development of fever, headache, chest pain, palpitations, syncope, shortness of breath, trouble breathing, abdominal pain, n/v/d, blood in stool/urine, loss of control of bowel /bladder, urinary retention, muscle weakness/paralysis, numbness/tingling, or other worsening symptoms that are concerning to you. Forms: Elevated Blood Pressure Referrals: HILARIA DE GUZMAN MD [Primary Care Provider] - 03/15/18
[2018-03-13 20:39] LABS: FREE T3 1.77 pg/mL (2.77-5.27); FREE T4 (FREE THYROXINE) 0.8 ng/dL (0.78-2.19)
[2018-03-13 20:53] LABS: THYROID STIMULATING HORMONE 14.6 uIU/mL (0.47-4.68)
--- NOTE | 2018-03-13 21:57 | EKG REPORT ---
SEVERITY:- ABNORMAL ECG - SINUS RHYTHM FIRST DEGREE AV BLOCK PROBABLE LEFT ATRIAL ABNORMALITY NONSPECIFIC INTRAVENTRICULAR CONDUCTION DELAY INFERIOR INFARCT, AGE INDETERMINATE : Confirmed by: Shahana Fuentes MD 13-Mar-2018 21:56:05
[2018-03-13 23:10] VITALS: BP 137/70
== END 2018-03-13 23:40 | disposition home or self-care (01) ==
LOC: ER 16:57
DX: R42 Dizziness and giddiness (principal); I50.9 Heart failure, unspecified; E86.1 Hypovolemia; R55 Syncope and collapse; E03.9 Hypothyroidism, unspecified; I25.10 Atherosclerotic heart disease of native coronary artery without angina pectoris; E78.00 Pure hypercholesterolemia, unspecified; I11.0 Hypertensive heart disease with heart failure; I25.2 Old myocardial infarction; Z87.442 Personal history of urinary calculi
CPT/HCPCS: 36415; 71046; 80053; 81001; 82272; 83880; 84439; 84443; 84481; 84484; 85025; 93005; 93010; 99284

== ENCOUNTER → 2019-04-25 | Outpatient (CLI) | payer MEDICARE, OTHER ==
--- NOTE | 2019-04-25 08:23 | RADIOLOGY REPORT (SQ) ---
EXAM DESCRIPTION: [facility] [employer] COMPLETED DATE/TIME: 04/25/2019 8:07 am REASON FOR STUDY: AAA I71.4 ABDOMINAL AORTIC ANEURYSM, WITHOUT RUPTURE COMPARISON: 05/30/2013 TECHNIQUE: Static and dynamic grayscale images acquired of the aorta and stored on PACs. Selected co dolores Doppler and spectral images recorded. LIMITATIONS: None. FINDINGS: AORTIC CALIBER MAXIMAL PROXIMAL: Obscured by overlying bowel gas. MID: Limited evaluation due to overlying bowel gas. Largest diameter is approximately 3.5 cm similar to prior CT. DISTAL: 1.2 x 1.0 x 1.8 cm. ILIAC DIAMETER RIGHT: 1.4 x 1.1 cm. LEFT: 1.3 x 1.1 cm. OTHER: No other significant finding. IMPRESSION: Limited evaluation due to overlying bowel gas. Largest diameter is approximately 3.5 cm similar to prior CT. COMMENT: Aortic aneurysm imaging followup: 3.5-3.9 cm Every 12 months *Based upon the Society for Vascular Surgery Guidelines: J Vasc Surg. 2009 Oct;50(4 Suppl):S2-49 *For aortas of maximum diameter of 2.6-2.9 cm meeting the criteria for AAA (?1.5 x proximal normal se gment) TECHNICAL DOCUMENTATION: JOB ID: [id number] [employer]- All Rights Reserved Reading location - IP/workstation name: [email or web address]
== END ==
LOC: RAD 07:43
PROVIDERS: ATTEND Physician Assistant
DX: I71.4 Abdominal aortic aneurysm, without rupture (principal)
CPT/HCPCS: 76775